=== PATIENT | male | born 1940 | race African-American/Black ===

== ENCOUNTER 2017-10-17 08:36 | Day surgery (SDC) | payer BC, OTHER ==
[~2017-10-17] VITALS: Ht 172.7 cm; Wt 85.7 kg
[~2017-10-17 08:36] MED LIST: CIPROFLOXACIN500 M1 PO; HYDROMORPHONE HC2 MG PO
[2017-10-17 09:03] VITALS: BP 137/76
[2017-10-17 12:35] VITALS: BP 142/80
[2017-10-17 13:30] VITALS: BP 143/75
== END 2017-10-17 13:30 | disposition home or self-care (01) ==
LOC: SDC 08:36
DX: H33.42 Traction detachment of retina, left eye (principal); H43.12 Vitreous hemorrhage, left eye; H34.8122 Central retinal vein occlusion, left eye, stable; I10 Essential (primary) hypertension; R73.03 Prediabetes
CPT/HCPCS: J0690; J0713; J2250